=== PATIENT | female | born 1990 | race Caucasian/White ===

== ENCOUNTER 2017-05-07 15:29 | Emergency (ER) | payer OTHER ==
[~2017-05-07] VITALS: Ht 147.3 cm; Wt 83.9 kg
[~2017-05-07 15:29] MED LIST: ABILIFY10 MG PO; ANAPROX DS550 MG PO; AUGMENTIN 875 M1 TAB PO; BACTRIM DS 8001 TA1 PO; BIRTH CONTROL; CILOXAN 5 ML5 M1 OP; CIPRODEX 0.3%-7.5 ML OT; CLARITIN10 MG PO; DESYREL100 MG; ELAVIL10 MG PO; MOTRIN800 MG PO; NEXIUM40 MG PO; OMNICEF300 MG PO; PROVENTIL0.09 MG/AC IH; REGLAN10 MG PO; VALIUM5 MG PO; VICO75300 PO; ZANTAC150 MG PO; ZOFRAN4 MG
[2017-05-07] MEDS ORDERED: OMEPRAZOLE40 MG PO (15:46)
[2017-05-07] MEDS ORDERED: ONDANSETRON HYDR4 M1 PO (15:47)
[2017-05-07] MEDS ORDERED: ABILIFY30 MG PO (15:47)
[2017-05-07] MEDS ORDERED: CLARITIN10 MG PO (15:48)
[2017-05-07] MEDS ORDERED: TRILEPTAL300 MG PO (15:48)
[2017-05-07] MEDS ORDERED: LAMICTAL100 MG PO (15:49)
[2017-05-07] MEDS ORDERED: LESSINA-28 TAB1 EACH PO (15:49)
== END 2017-05-07 17:03 | disposition home or self-care (01) ==
LOC: ED 15:29
DX: R51 Headache (principal); Z79.899 Other long term (current) drug therapy; Z88.0 Allergy status to penicillin; Z88.5 Allergy status to narcotic agent; Z88.8 Allergy status to other drugs, medicaments and biological substances

== ENCOUNTER 2017-05-17 15:42 | Emergency (ER) | payer OTHER ==
[~2017-05-17] VITALS: Ht 147.3 cm; Wt 83.5 kg
[~2017-05-17 15:42] MED LIST changes: +ABILIFY30 MG PO; +LAMICTAL100 MG PO; +LESSINA-28 TAB1 EACH PO; +OMEPRAZOLE40 MG PO; +ONDANSETRON HYDR4 M1 PO; +TRILEPTAL300 MG PO
[2017-05-17] MEDS ORDERED: IMITREX50 MG PO (15:54)
[2017-05-17] MEDS ORDERED: Carafate1 GM PO (15:54)
[2017-05-17] MEDS ORDERED: MULTIVITAMINS1 EAC5 PO (15:55)
[2017-05-17] MEDS ORDERED: TRAZODONE50 MG PO (15:55)
[2017-05-17] MEDS ORDERED: DIPHENHYDRAMINE 25 MG PO (15:55)
[2017-05-17] MEDS ORDERED: ZOFRAN4 MG PO (15:56)
[2017-05-17] MEDS ORDERED: MOTRIN IB200 M1 PO (15:56)
[2017-05-17] MEDS ORDERED: OMEPRAZOLE D/R20 MG PO (15:56)
[2017-05-17] MEDS ORDERED: ABILIFY30 MG PO (15:58)
[2017-05-17] MEDS ORDERED: BISMATROL262 MG PO (15:58)
[2017-05-17] MEDS ORDERED: TRILEPTAL600 MG PO (15:59)
[2017-05-17] MEDS ORDERED: TRILEPTAL300 MG PO (15:59)
[2017-05-17] MEDS ORDERED: RANITIDINE HCL150 M1 PO (16:00)
[2017-05-17] MEDS ORDERED: LORATADINE10 M3 PO (16:00)
[2017-05-17] MEDS ORDERED: LAMICTAL100 MG PO (16:00)
[2017-05-17] MEDS ORDERED: [UNRECOGNIZED DRUG - OTHER] PO (16:01)
[2017-05-17 16:18] LABS: BILIRUBIN NEGATIVE (NEGATIVE); BLOOD NEGATIVE (NEGATIVE); CLARITY SL CLOUDY (CLEAR); COLOR YELLOW (YELLOW); GLUCOSE NEGATIVE (NEGATIVE); KETONE TRACE (NEGATIVE); LEUKO ESTERASE NEGATIVE (NEGATIVE); NITRITE NEGATIVE (NEGATIVE); SPECIFIC GRAVITY 1.015 (1.005-1.030); UROBILINOGEN 0.2 E.U./dl (0.2-1.0)
[2017-05-17 16:23] LABS: BACTERIA 2+; EPITHELIAL CELLS TNTC
[2017-05-17 16:31] LABS: BASO % 0.6 % (0.0-1.0); EOS % 0.5 % (1.0-4.0); HEMATOCRIT 43.3 % (37.0-47.0); HEMOGLOBIN 13.5 g/dl (12.0-16.0); LYMPH # 1.9 10*3/uL (1.3-4.4); LYMPH % 29.7 % (27.0-41.0); MEAN CELL VOLUME 85.6 fl (81.0-99.0); MEAN CORPUSCULAR HGB 26.7 pg (27.0-31.0); MEAN CORPUSCULAR HGB CONC 31.2 g/dl (33.0-37.0); MEAN PLATELET VOLUME 9.7 fl (9.6-12.3); MONO # 0.6 10*3/uL (0.1-1.0); NEUT # 3.8 10*3/uL (2.3-7.9); NEUT % 59.9 % (47.0-73.0); PLATELET COUNT AUTOMATED 279 10*3/uL (130-400); RED BLOOD COUNT 5.06 10*6/uL (4.10-5.10); RED CELL DISTRI WIDTH 12.2 % (0-14.5); WHITE BLOOD COUNT 6.3 10*3/uL (4.8-10.8)
[2017-05-17 16:32] LABS: URINE AMPHETAMINES < 1000 (1000ng/ml); URINE BARBITURATES < 200 (200ng/ml); URINE BENZODIAZEPINES < 200 (200ng/ml); URINE CANNABINOIDS (THC) < 50 (50ng/ml); URINE COCAINE < 300 (300ng/ml); URINE METHADONE < 300 (300ng/ml); URINE OPIATES < 300 (300ng/ml); URINE PHENCYCLIDINE < 25 (25ng/ml)
[2017-05-17 16:45] LABS: ALBUMIN 3.8 gm/dl (3.1-4.5); ALKALINE PHOSPHATASE 134 U/L (45-117); BUN 13 mg/dl (7-24); CHLORIDE 104 mmol/L (98-107); POTASSIUM 3.9 mmol/L (3.5-5.1); SGOT/AST 30 IU/L (3-35); SGPT/ALT 40 U/L (12-78); SODIUM 138 mmol/L (136-145); TOTAL PROTEIN 7.7 gm/dL (6.4-8.2)
[2017-05-17 16:47] LABS: ETHYL ALCOHOL < 3.0 mg/dl (<3)
[2017-05-17 16:48] LABS: ACETAMINOPHEN (TYLENOL) < 2.0 ug/ml (10-30); B-hCG (QUALITATIVE) NEGATIVE (NEGATIVE)
== END 2017-05-18 07:58 | disposition short-term general hospital (02) ==
LOC: ED 15:42
PROVIDERS: Physician Assistant
DX: F32.9 Major depressive disorder, single episode, unspecified (principal); R45.851 Suicidal ideations; F19.20 Other psychoactive substance dependence, uncomplicated; Z98.890 Other specified postprocedural states; Z79.899 Other long term (current) drug therapy; Z88.5 Allergy status to narcotic agent; Z88.0 Allergy status to penicillin

== ENCOUNTER → 2018-03-22 | Outpatient (CLI) | payer OTHER ==
[~2018-03-22] MED LIST changes: +BISMATROL262 MG PO; +Carafate1 GM PO; +DIPHENHYDRAMINE 25 MG PO; +IMITREX50 MG PO; +LORATADINE10 M3 PO; +MOTRIN IB200 M1 PO; +MULTIVITAMINS1 EAC5 PO; +OMEPRAZOLE D/R20 MG PO; +RANITIDINE HCL150 M1 PO; +TRAZODONE50 MG PO; +TRILEPTAL600 MG PO; +ZOFRAN4 MG PO; +[UNRECOGNIZED DRUG - OTHER] PO
== END | disposition home or self-care (01) ==
LOC: US 03-13 09:30
DX: R10.13 Epigastric pain (principal)

== ENCOUNTER → 2018-04-01 | Outpatient (CLI) | payer OTHER | END | disposition home or self-care (01) | LOC: NM 07:00 | DX: R10.11 Right upper quadrant pain (principal); R11.2 Nausea with vomiting, unspecified; R12 Heartburn; R14.0 Abdominal distension (gaseous) ==

== ENCOUNTER → 2018-04-02 | Outpatient (CLI) | payer OTHER | END | disposition home or self-care (01) | LOC: LAB 08:26 | DX: R19.7 Diarrhea, unspecified (principal) ==

== ENCOUNTER 2018-05-27 17:42 | Emergency (ER) | payer OTHER ==
[~2018-05-27] VITALS: Ht 147.3 cm; Wt 85.3 kg
== END 2018-05-27 19:37 | disposition home or self-care (01) ==
LOC: ED 17:42
DX: S82.141D Displaced bicondylar fracture of right tibia, subsequent encounter for closed fracture with routine healing (principal); Z79.899 Other long term (current) drug therapy; Z88.0 Allergy status to penicillin; Z88.5 Allergy status to narcotic agent; Z88.8 Allergy status to other drugs, medicaments and biological substances; V19.88XD Pedal cyclist (driver) (passenger) injured in other specified transport accidents, subsequent encounter

== ENCOUNTER → 2018-06-05 | Outpatient (CLI) | payer OTHER | END | disposition home or self-care (01) | LOC: CT 15:50 | DX: S82.141A Displaced bicondylar fracture of right tibia, initial encounter for closed fracture (principal); M25.461 Effusion, right knee; X58.XXXA Exposure to other specified factors, initial encounter; Y93.89 Activity, other specified; Y92.89 Other specified places as the place of occurrence of the external cause; Y99.8 Other external cause status ==

== ENCOUNTER 2018-07-03 16:02 | Emergency (ER) | payer OTHER ==
[~2018-07-03] VITALS: Ht 147.3 cm; Wt 88.0 kg
== END 2018-07-03 17:50 | disposition home or self-care (01) ==
LOC: ED 16:02
DX: R60.0 Localized edema (principal); Z98.890 Other specified postprocedural states; Z88.0 Allergy status to penicillin; Z88.8 Allergy status to other drugs, medicaments and biological substances; Z79.899 Other long term (current) drug therapy

== ENCOUNTER 2018-10-14 10:11 | Emergency (ER) | payer OTHER ==
[~2018-10-14] VITALS: Ht 147.3 cm; Wt 81.6 kg
[2018-10-14 10:47] LABS: BILIRUBIN NEGATIVE (NEGATIVE); BLOOD NEGATIVE (NEGATIVE); CLARITY CLOUDY (CLEAR); COLOR YELLOW (YELLOW); GLUCOSE NEGATIVE (NEGATIVE); KETONE NEGATIVE (NEGATIVE); LEUKO ESTERASE 1+ (NEGATIVE); NITRITE NEGATIVE (NEGATIVE); UROBILINOGEN 0.2 E.U./dl (0.2-1.0)
[2018-10-14 10:59] LABS: BACTERIA 4+; EPITHELIAL CELLS TNTC; WBC 31-40 wbc/hpf (0-5)
[2018-10-14] MEDS ORDERED: MACROBID100 M1 PO (11:07)
== END 2018-10-14 11:07 | disposition home or self-care (01) ==
LOC: ED 10:11
PROVIDERS: Nurse Practitioner Family
DX: R30.0 Dysuria (principal); R39.11 Hesitancy of micturition; R10.30 Lower abdominal pain, unspecified; R35.0 Frequency of micturition; K21.9 Gastro-esophageal reflux disease without esophagitis; Z88.0 Allergy status to penicillin; Z88.8 Allergy status to other drugs, medicaments and biological substances; Z79.899 Other long term (current) drug therapy

== ENCOUNTER → 2018-10-17 | Outpatient (CLI) | payer OTHER ==
[~2018-10-17] MED LIST changes: +MACROBID100 M1 PO
== END | disposition home or self-care (01) ==
LOC: LAB 11:29
DX: Z51.81 Encounter for therapeutic drug level monitoring (principal); Z79.899 Other long term (current) drug therapy

== ENCOUNTER 2018-10-20 09:13 | Emergency (ER) | payer OTHER ==
[~2018-10-20] VITALS: Ht 147.3 cm; Wt 82.6 kg
[2018-10-20 09:40] LABS: BILIRUBIN NEGATIVE (NEGATIVE); BLOOD NEGATIVE (NEGATIVE); CLARITY CLOUDY (CLEAR); COLOR YELLOW (YELLOW); GLUCOSE NEGATIVE (NEGATIVE); KETONE NEGATIVE (NEGATIVE); LEUKO ESTERASE TRACE (NEGATIVE); NITRITE NEGATIVE (NEGATIVE); SPECIFIC GRAVITY <= 1.005 (1.005-1.030); UROBILINOGEN 0.2 E.U./dl (0.2-1.0)
[2018-10-20 09:57] LABS: BACTERIA 3+; EPITHELIAL CELLS 40-50
[2018-10-20 09:59] LABS: BASO % 0.6 % (0.0-1.0); EOS % 0.3 % (1.0-4.0); HEMOGLOBIN 13.2 g/dl (12.0-16.0); LYMPH # 1.4 10*3/uL (1.3-4.4); LYMPH % 22.1 % (27.0-41.0); MEAN CELL VOLUME 88.6 fl (81.0-99.0); MEAN CORPUSCULAR HGB 27.8 pg (27.0-31.0); MEAN CORPUSCULAR HGB CONC 31.4 g/dl (33.0-37.0); MEAN PLATELET VOLUME 9.9 fl (9.6-12.3); MONO # 0.4 10*3/uL (0.1-1.0); MONO % 6.2 % (3.0-9.0); NEUT # 4.5 10*3/uL (2.3-7.9); NEUT % 70.5 % (47.0-73.0); PLATELET COUNT AUTOMATED 257 10*3/uL (130-400); RED BLOOD COUNT 4.74 10*6/uL (4.10-5.10); RED CELL DISTRI WIDTH 12.3 % (0-14.5); WHITE BLOOD COUNT 6.3 10*3/uL (4.8-10.8)
[2018-10-20 10:09] LABS: ALBUMIN 3.3 gm/dl (3.1-4.5); ALKALINE PHOSPHATASE 161 U/L (45-117); BUN 10 mg/dl (7-24); CHLORIDE 106 mmol/L (98-107); CREATININE 0.63 mg/dL (0.55-1.02); LIPASE 67 U/L (73-393); POTASSIUM 3.9 mmol/L (3.5-5.1); SGOT/AST 12 IU/L (3-35); SGPT/ALT 26 U/L (12-78); SODIUM 140 mmol/L (136-145)
== END 2018-10-20 13:12 | disposition home or self-care (01) ==
LOC: ED 09:13
PROVIDERS: Nurse Practitioner Family
DX: N83.202 Unspecified ovarian cyst, left side (principal)

== ENCOUNTER → 2018-12-16 | Outpatient (CLI) | payer OTHER | END | disposition home or self-care (01) | LOC: US 07:28 | DX: R74.8 Abnormal levels of other serum enzymes (principal) ==

== ENCOUNTER 2019-01-01 11:43 | Emergency (ER) | payer OTHER ==
[~2019-01-01] VITALS: Ht 147.3 cm; Wt 90.7 kg
== END 2019-01-01 14:44 | disposition home or self-care (01) ==
LOC: ED 11:43
DX: R60.0 Localized edema (principal); M79.661 Pain in right lower leg; K21.9 Gastro-esophageal reflux disease without esophagitis; Z88.0 Allergy status to penicillin; Z88.8 Allergy status to other drugs, medicaments and biological substances; Z79.2 Long term (current) use of antibiotics; Z79.899 Other long term (current) drug therapy

== ENCOUNTER 2019-01-13 10:59 | Emergency (ER) | payer OTHER ==
[~2019-01-13] VITALS: Ht 147.3 cm; Wt 99.8 kg
[2019-01-13 11:38] LABS: BILIRUBIN NEGATIVE (NEGATIVE); BLOOD NEGATIVE (NEGATIVE); CLARITY CLOUDY (CLEAR); COLOR YELLOW (YELLOW); GLUCOSE NEGATIVE (NEGATIVE); KETONE NEGATIVE (NEGATIVE); LEUKO ESTERASE 2+ (NEGATIVE); NITRITE NEGATIVE (NEGATIVE); UROBILINOGEN 0.2 E.U./dl (0.2-1.0)
[2019-01-13 11:50] LABS: BASO # 0.1 10*3/uL (0.0-0.1); BASO % 0.6 % (0.0-1.0); EOS % 0.5 % (1.0-4.0); HEMATOCRIT 41.5 % (37.0-47.0); HEMOGLOBIN 12.9 g/dl (12.0-16.0); LYMPH # 1.5 10*3/uL (1.3-4.4); LYMPH % 18.6 % (27.0-41.0); MEAN CELL VOLUME 90.6 fl (81.0-99.0); MEAN CORPUSCULAR HGB 28.2 pg (27.0-31.0); MEAN CORPUSCULAR HGB CONC 31.1 g/dl (33.0-37.0); MEAN PLATELET VOLUME 10.2 fl (9.6-12.3); MONO # 0.5 10*3/uL (0.1-1.0); MONO % 6.4 % (3.0-9.0); NEUT # 5.9 10*3/uL (2.3-7.9); NEUT % 73.7 % (47.0-73.0); PLATELET COUNT AUTOMATED 264 10*3/uL (130-400); RED BLOOD COUNT 4.58 10*6/uL (4.10-5.10); RED CELL DISTRI WIDTH 12.2 % (0-14.5)
[2019-01-13 11:55] LABS: BACTERIA 3+
[2019-01-13 12:06] LABS: ALBUMIN 3.1 gm/dl (3.1-4.5); ALKALINE PHOSPHATASE 194 U/L (45-117); BUN 8 mg/dl (7-24); CHLORIDE 104 mmol/L (98-107); CREATININE 0.65 mg/dL (0.55-1.02); POTASSIUM 3.6 mmol/L (3.5-5.1); SGOT/AST 20 IU/L (3-35); SGPT/ALT 28 U/L (12-78); SODIUM 139 mmol/L (136-145); TOTAL PROTEIN 6.8 gm/dL (6.4-8.2)
[2019-01-13 12:17] LABS: CARBAMAZEPINE (TEGRETOL) TOTAL 8.3 ug/ml (4-12)
== END 2019-01-13 13:09 | disposition home or self-care (01) ==
LOC: ED 10:59
PROVIDERS: Emergency Medicine
DX: R55 Syncope and collapse (principal); G43.909 Migraine, unspecified, not intractable, without status migrainosus; K21.9 Gastro-esophageal reflux disease without esophagitis; Z88.0 Allergy status to penicillin; Z88.8 Allergy status to other drugs, medicaments and biological substances; Z79.2 Long term (current) use of antibiotics; Z79.899 Other long term (current) drug therapy

== ENCOUNTER 2019-04-16 12:34 | Emergency (ER) | payer OTHER ==
[~2019-04-16] VITALS: Ht 147.3 cm; Wt 88.0 kg
[2019-04-16] MEDS ORDERED: IMIPRAMINE HCL25 MG PO (13:09)
[2019-04-16] MEDS ORDERED: TRUVADA 200 MG-1 TAB PO (13:10)
[2019-04-16 13:45] LABS: BILIRUBIN NEGATIVE (NEGATIVE); CLARITY SL CLOUDY (CLEAR); COLOR YELLOW (YELLOW); GLUCOSE NEGATIVE (NEGATIVE); KETONE 1+ (NEGATIVE); SPECIFIC GRAVITY 1.015 (1.005-1.030)
[2019-04-16 13:46] LABS: BACTERIA 4+; BLOOD NEGATIVE (NEGATIVE); EPITHELIAL CELLS 45-50; LEUKO ESTERASE NEGATIVE (NEGATIVE); NITRITE NEGATIVE (NEGATIVE); UROBILINOGEN 0.2 E.U./dl (0.2-1.0)
[2019-04-16] MEDS ORDERED: MACROBID100 M1 PO (14:05)
== END 2019-04-16 14:18 | disposition home or self-care (01) ==
LOC: ED 12:34
PROVIDERS: Nurse Practitioner Family
DX: N39.0 Urinary tract infection, site not specified (principal); N93.8 Other specified abnormal uterine and vaginal bleeding; Z32.02 Encounter for pregnancy test, result negative; Z88.0 Allergy status to penicillin; Z88.8 Allergy status to other drugs, medicaments and biological substances; Z79.899 Other long term (current) drug therapy

== ENCOUNTER → 2019-04-24 | Outpatient (CLI) | payer OTHER ==
[~2019-04-24] MED LIST changes: +IMIPRAMINE HCL25 MG PO; +TRUVADA 200 MG-1 TAB PO
== END | disposition home or self-care (01) ==
LOC: RAD 09:13
DX: M54.5 Low back pain (principal)

== ENCOUNTER → 2019-07-09 | Outpatient (CLI) | payer OTHER ==
[2019-07-09 13:04] LABS: ALKALINE PHOSPHATASE 163 U/L (45-117); BUN 11 mg/dl (7-24); CHLORIDE 109 mmol/L (98-107); CREATININE 0.73 mg/dL (0.55-1.02); FREE T4 0.76 ng/dl (0.76-1.46); POTASSIUM 3.5 mmol/L (3.5-5.1); SGOT/AST 18 IU/L (3-35); SGPT/ALT 32 U/L (12-78); SODIUM 140 mmol/L (136-145); TOTAL PROTEIN 6.8 gm/dL (6.4-8.2)
== END | disposition home or self-care (01) ==
LOC: LAB 11:57
PROVIDERS: Internal Medicine
DX: F31.9 Bipolar disorder, unspecified (principal)

== ENCOUNTER → 2019-07-20 | Outpatient (CLI) | payer OTHER | END | disposition home or self-care (01) | LOC: LAB 12:59 | DX: R79.89 Other specified abnormal findings of blood chemistry (principal) ==

== ENCOUNTER 2019-08-18 17:26 | Emergency (ER) | payer OTHER ==
[~2019-08-18] VITALS: Ht 147.3 cm; Wt 81.6 kg
[2019-08-18 18:11] LABS: BASO # 0.1 10*3/uL (0.0-0.1); BASO % 0.8 % (0.0-1.0); EOS % 0.5 % (1.0-4.0); LYMPH # 1.6 10*3/uL (1.3-4.4); LYMPH % 26.9 % (27.0-41.0); MEAN CELL VOLUME 91.8 fl (81.0-99.0); MEAN CORPUSCULAR HGB 28.5 pg (27.0-31.0); MEAN PLATELET VOLUME 9.9 fl (9.6-12.3); MONO # 0.6 10*3/uL (0.1-1.0); MONO % 9.2 % (3.0-9.0); NEUT # 3.7 10*3/uL (2.3-7.9); NEUT % 62.3 % (47.0-73.0); PLATELET COUNT AUTOMATED 270 10*3/uL (130-400); RED BLOOD COUNT 4.25 10*6/uL (4.10-5.10); RED CELL DISTRI WIDTH 11.5 % (0-14.5)
[2019-08-18 18:26] LABS: ALBUMIN 3.4 gm/dl (3.1-4.5); ALKALINE PHOSPHATASE 153 U/L (45-117); BUN 11 mg/dl (7-24); CHLORIDE 112 mmol/L (98-107); CREATININE 0.77 mg/dL (0.55-1.02); SGOT/AST 23 IU/L (3-35); SGPT/ALT 37 U/L (12-78); SODIUM 142 mmol/L (136-145); TOTAL PROTEIN 6.9 gm/dL (6.4-8.2)
[2019-08-18 18:40] LABS: BACTERIA TRACE; BILIRUBIN NEGATIVE (NEGATIVE); BLOOD NEGATIVE (NEGATIVE); CLARITY CLOUDY (CLEAR); COLOR YELLOW (YELLOW); GLUCOSE NEGATIVE (NEGATIVE); KETONE NEGATIVE (NEGATIVE); LEUKO ESTERASE NEGATIVE (NEGATIVE); NITRITE NEGATIVE (NEGATIVE); RBC 0-2 rbc/hpf (0-2); SPECIFIC GRAVITY 1.015 (1.005-1.030); UROBILINOGEN 0.2 E.U./dl (0.2-1.0); WBC 0-2 wbc/hpf (0-5)
== END 2019-08-18 19:58 | disposition home or self-care (01) ==
LOC: ED 17:26
PROVIDERS: Nurse Practitioner Family
DX: R53.83 Other fatigue (principal); H53.9 Unspecified visual disturbance; T43.595A Adverse effect of other antipsychotics and neuroleptics, initial encounter; K21.9 Gastro-esophageal reflux disease without esophagitis; Z88.0 Allergy status to penicillin; Z88.8 Allergy status to other drugs, medicaments and biological substances; Z79.899 Other long term (current) drug therapy; Y92.89 Other specified places as the place of occurrence of the external cause

== ENCOUNTER → 2019-08-28 | Outpatient (CLI) | payer OTHER | END | disposition home or self-care (01) | LOC: NM 08:57 | DX: K31.84 Gastroparesis (principal) ==

== ENCOUNTER → 2019-09-05 | Outpatient (CLI) | payer OTHER ==
[2019-09-05 09:59] LABS: ALBUMIN 3.4 gm/dl (3.1-4.5); BUN 7 mg/dl (7-24); CHLORIDE 112 mmol/L (98-107); POTASSIUM 3.8 mmol/L (3.5-5.1); SGOT/AST 8 IU/L (3-35); SGPT/ALT 28 U/L (12-78); SODIUM 142 mmol/L (136-145)
[2019-09-05 10:09] LABS: ALKALINE PHOSPHATASE 136 U/L (45-117); FREE T4 0.97 ng/dl (0.76-1.46); TOTAL PROTEIN 7.2 gm/dL (6.4-8.2)
== END | disposition home or self-care (01) ==
LOC: LAB 09:23
PROVIDERS: Internal Medicine
DX: G56.03 Carpal tunnel syndrome, bilateral upper limbs (principal)

== ENCOUNTER → 2019-09-29 | Outpatient (CLI) | payer OTHER ==
[2019-09-30 08:08] LABS: RHEUMATOID ARTHRITIS FACTOR <10.0 IU/mL (0.0-13.9)
[2019-10-01 00:09] LABS: CCP ANTIBODIES IGG/IGA 7 units (0-19)
[2019-10-02 18:08] LABS: METHYLMALONIC ACID 125 nmol/L (0-378)
== END ==
LOC: LAB 10:49
PROVIDERS: Internal Medicine
DX: M79.642 Pain in left hand (principal); M79.641 Pain in right hand; E53.8 Deficiency of other specified B group vitamins

== ENCOUNTER → 2019-12-29 | Outpatient (CLI) | payer OTHER ==
[2019-12-29 09:34] LABS: ALBUMIN 3.3 gm/dl (3.1-4.5); BILIRUBIN, DIRECT < 0.1 mg/dL (0.0-0.2); SGPT/ALT 19 U/L (12-78)
[2019-12-29 09:36] LABS: ALKALINE PHOSPHATASE 99 U/L (45-117); SGOT/AST 11 IU/L (3-35)
== END | disposition home or self-care (01) ==
LOC: LAB 08:58
PROVIDERS: ATTEND Internal Medicine Gastroenterology
DX: R10.13 Epigastric pain (principal)

== ENCOUNTER → 2020-01-01 | Outpatient (CLI) | payer OTHER | END | disposition home or self-care (01) | LOC: US 12-31 07:30 | PROVIDERS: ATTEND Internal Medicine Gastroenterology | DX: R10.13 Epigastric pain (principal); R94.5 Abnormal results of liver function studies ==

== ENCOUNTER 2020-06-28 17:40 | Emergency (ER) | payer OTHER ==
[~2020-06-28] VITALS: Ht 147.3 cm; Wt 89.4 kg
[2020-06-28 18:23] LABS: BASO # 0.1 10*3/uL (0.0-0.1); EOS % 0.4 % (1.0-4.0); HEMATOCRIT 38.4 % (37.0-47.0); LYMPH # 2.1 10*3/uL (1.3-4.4); LYMPH % 30.3 % (27.0-41.0); MEAN CELL VOLUME 84.4 fl (81.0-99.0); MEAN CORPUSCULAR HGB 26.6 pg (27.0-31.0); MEAN CORPUSCULAR HGB CONC 31.5 g/dl (33.0-37.0); MEAN PLATELET VOLUME 10.1 fl (9.6-12.3); MONO # 0.6 10*3/uL (0.1-1.0); NEUT # 4.1 10*3/uL (2.3-7.9); PLATELET COUNT AUTOMATED 265 10*3/uL (130-400); RED BLOOD COUNT 4.55 10*6/uL (4.10-5.10); RED CELL DISTRI WIDTH 11.6 % (0-14.5); WHITE BLOOD COUNT 6.9 10*3/uL (4.8-10.8)
[2020-06-28 18:42] LABS: ALBUMIN 3.2 gm/dl (3.1-4.5); ALKALINE PHOSPHATASE 111 U/L (45-117); BUN 17 mg/dl (7-24); CHLORIDE 110 mmol/L (98-107); CREATININE 0.98 mg/dL (0.55-1.02); LIPASE 69 U/L (73-393); POTASSIUM 3.4 mmol/L (3.5-5.1); SGOT/AST 17 IU/L (3-35); SGPT/ALT 28 U/L (12-78); SODIUM 140 mmol/L (136-145); TOTAL PROTEIN 6.8 gm/dL (6.4-8.2)
[2020-06-28 18:43] LABS: TROPONIN I < 0.015 ng/ml (<0.045)
== END 2020-06-28 19:34 | disposition home or self-care (01) ==
LOC: ED 17:40
PROVIDERS: Physician Assistant
DX: R07.9 Chest pain, unspecified (principal); Z88.0 Allergy status to penicillin; Z88.8 Allergy status to other drugs, medicaments and biological substances; Z79.899 Other long term (current) drug therapy; Z98.890 Other specified postprocedural states

== ENCOUNTER → 2020-07-01 | Outpatient (CLI) | payer OTHER ==
[2020-07-01 09:28] LABS: BASO # 0.1 10*3/uL (0.0-0.1); EOS % 0.6 % (1.0-4.0); HEMATOCRIT 42.8 % (37.0-47.0); LYMPH # 1.7 10*3/uL (1.3-4.4); LYMPH % 35.6 % (27.0-41.0); MEAN CELL VOLUME 85.9 fl (81.0-99.0); MEAN CORPUSCULAR HGB 26.5 pg (27.0-31.0); MEAN CORPUSCULAR HGB CONC 30.8 g/dl (33.0-37.0); MEAN PLATELET VOLUME 10.1 fl (9.6-12.3); MONO # 0.4 10*3/uL (0.1-1.0); MONO % 8.1 % (3.0-9.0); NEUT # 2.6 10*3/uL (2.3-7.9); NEUT % 54.5 % (47.0-73.0); PLATELET COUNT AUTOMATED 263 10*3/uL (130-400); RED BLOOD COUNT 4.98 10*6/uL (4.10-5.10); RED CELL DISTRI WIDTH 11.8 % (0-14.5); WHITE BLOOD COUNT 4.8 10*3/uL (4.8-10.8)
[2020-07-01 09:42] LABS: ALBUMIN 3.2 gm/dl (3.1-4.5); ALKALINE PHOSPHATASE 116 U/L (45-117); BILIRUBIN, DIRECT < 0.1 mg/dL (0.0-0.2); BUN 10 mg/dl (7-24); CHLORIDE 113 mmol/L (98-107); CREATININE 0.82 mg/dL (0.55-1.02); POTASSIUM 3.8 mmol/L (3.5-5.1); SGOT/AST 19 IU/L (3-35); SGPT/ALT 25 U/L (12-78); SODIUM 143 mmol/L (136-145); TOTAL PROTEIN 7.2 gm/dL (6.4-8.2)
== END | disposition home or self-care (01) ==
LOC: LAB 09:16
PROVIDERS: ATTEND Nurse Practitioner Family
DX: Z51.81 Encounter for therapeutic drug level monitoring (principal); Z79.899 Other long term (current) drug therapy

== ENCOUNTER → 2020-12-12 | Outpatient (CLI) | payer OTHER ==
[2020-12-12 09:44] LABS: ALBUMIN 3.2 gm/dl (3.1-4.5); ALKALINE PHOSPHATASE 105 U/L (45-117); BUN 11 mg/dl (7-24); CHLORIDE 108 mmol/L (98-107); POTASSIUM 4.2 mmol/L (3.5-5.1); SGOT/AST 21 IU/L (3-35); SGPT/ALT 34 U/L (12-78); SODIUM 141 mmol/L (136-145); TOTAL PROTEIN 7.2 gm/dL (6.4-8.2)
== END | disposition home or self-care (01) ==
LOC: LAB 08:42
PROVIDERS: ATTEND Nurse Practitioner Family
DX: R10.13 Epigastric pain (principal)

== ENCOUNTER → 2021-03-03 | Outpatient (CLI) | payer OTHER | END | disposition home or self-care (01) | LOC: US 02-28 11:00 | PROVIDERS: ATTEND Nurse Practitioner Family | DX: R10.13 Epigastric pain (principal) ==

== ENCOUNTER → 2021-04-12 | Outpatient (CLI) | payer OTHER | END | disposition home or self-care (01) | LOC: NM 12:51 | PROVIDERS: ATTEND Nurse Practitioner Family | DX: R10.13 Epigastric pain (principal) ==

== ENCOUNTER → 2021-04-13 | Outpatient (CLI) | payer OTHER ==
[2021-04-13 10:39] LABS: BASO # 0.1 10*3/uL (0.0-0.1); BASO % 0.8 % (0.0-1.0); EOS % 0.7 % (1.0-4.0); HEMATOCRIT 40.3 % (37.0-47.0); LYMPH # 1.8 10*3/uL (1.3-4.4); MEAN CELL VOLUME 84.1 fl (81.0-99.0); MEAN CORPUSCULAR HGB 26.3 pg (27.0-31.0); MEAN CORPUSCULAR HGB CONC 31.3 g/dl (33.0-37.0); MEAN PLATELET VOLUME 9.6 fl (9.6-12.3); MONO # 0.5 10*3/uL (0.1-1.0); MONO % 9.1 % (3.0-9.0); NEUT # 3.5 10*3/uL (2.3-7.9); NEUT % 58.1 % (47.0-73.0); PLATELET COUNT AUTOMATED 265 10*3/uL (130-400); RED BLOOD COUNT 4.79 10*6/uL (4.10-5.10); RED CELL DISTRI WIDTH 12.7 % (0-14.5); WHITE BLOOD COUNT 5.9 10*3/uL (4.8-10.8)
== END | disposition home or self-care (01) ==
LOC: LAB 10:16
PROVIDERS: ATTEND Nurse Practitioner
DX: Z51.81 Encounter for therapeutic drug level monitoring (principal); Z79.899 Other long term (current) drug therapy

== ENCOUNTER 2021-04-29 15:01 | Emergency (ER) | payer OTHER ==
[~2021-04-29] VITALS: Ht 147.3 cm; Wt 99.8 kg
[2021-04-29] MEDS ORDERED: MOTRIN 600 MG E4 TAB PO (18:25)
== END 2021-04-29 18:27 | disposition home or self-care (01) ==
LOC: ED 15:01
DX: S39.012A Strain of muscle, fascia and tendon of lower back, initial encounter (principal); Z88.0 Allergy status to penicillin; Z88.8 Allergy status to other drugs, medicaments and biological substances; Z79.899 Other long term (current) drug therapy; X50.9XXA Other and unspecified overexertion or strenuous movements or postures, initial encounter; Y93.89 Activity, other specified; Y92.89 Other specified places as the place of occurrence of the external cause; Y99.8 Other external cause status

== ENCOUNTER → 2021-06-09 | Outpatient (CLI) | payer OTHER ==
[~2021-06-09] MED LIST changes: +MOTRIN 600 MG E4 TAB PO
[2021-06-09 12:10] LABS: FREE T4 0.82 ng/dl (0.76-1.46)
[2021-06-09 12:32] LABS: BETA-HCG, QUANT < 1.0 mIU/mL (1-3)
== END | disposition home or self-care (01) ==
LOC: LAB 10:43
PROVIDERS: ATTEND Nurse Practitioner Family
DX: N91.2 Amenorrhea, unspecified (principal)

== ENCOUNTER 2021-06-27 10:23 | Emergency (ER) | payer OTHER ==
[~2021-06-27] VITALS: Wt 99.3 kg
[2021-06-27] MEDS ORDERED: MELOXICAM15 MG PO (11:21)
[2021-06-27] MEDS ORDERED: REGLAN10 M1 PO (11:21)
[2021-06-27] MEDS ORDERED: DULERA 200 MCG8.8 GM INH (11:22)
[2021-06-27] MEDS ORDERED: PROPRANOLOL HY120 MG PO (11:23)
[2021-06-27] MEDS ORDERED: NAPROSYN500 MG PO (11:31)
[2021-06-27] MEDS ORDERED: MEDROL DOSEPAK4 MG PO (11:31)
== END 2021-06-27 11:43 | disposition home or self-care (01) ==
LOC: ED 10:23
DX: M54.16 Radiculopathy, lumbar region (principal); Z88.0 Allergy status to penicillin; Z88.8 Allergy status to other drugs, medicaments and biological substances; Z79.899 Other long term (current) drug therapy

== ENCOUNTER → 2021-09-20 | Outpatient (CLI) | payer OTHER ==
[~2021-09-20] MED LIST changes: +DULERA 200 MCG8.8 GM INH; +MEDROL DOSEPAK4 MG PO; +MELOXICAM15 MG PO; +NAPROSYN500 MG PO; +PROPRANOLOL HY120 MG PO; +REGLAN10 M1 PO
[2021-09-20 14:49] LABS: FREE T4 0.95 ng/dl (0.76-1.46)
[2021-09-20 14:55] LABS: BETA-HCG, QUANT < 1.0 mIU/mL (1-3)
[2021-09-21 08:08] LABS: LUTEINIZING HORMONE 4.7 mIU/mL (.)
[2021-09-21 09:07] LABS: FOLLICLE STIMULATING HORMONE 4.6 mIU/mL (.)
== END | disposition home or self-care (01) ==
LOC: LAB 13:37
PROVIDERS: ATTEND Nurse Practitioner Family
DX: N91.2 Amenorrhea, unspecified (principal)

== ENCOUNTER 2021-11-14 10:04 | Emergency (ER) | payer OTHER ==
[~2021-11-14] VITALS: Ht 147.3 cm; Wt 99.3 kg
[2021-11-14] MEDS ORDERED: [UNRECOGNIZED DRUG - OTHER] PO (10:33)
[2021-11-14] MEDS ORDERED: METOCLOPRAMIDE10 M1 PO (10:33)
[2021-11-14] MEDS ORDERED: DEXILANT60 M1 PO (10:35)
[2021-11-14] MEDS ORDERED: DICYCLOMINE HCL10 MG PO (10:36)
[2021-11-14 10:48] LABS: BASO # 0.1 10*3/uL (0.0-0.1); BASO % 0.9 % (0.0-1.0); EOS % 0.4 % (1.0-4.0); LYMPH # 1.2 10*3/uL (1.3-4.4); LYMPH % 21.9 % (27.0-41.0); MEAN CELL VOLUME 85.7 fl (81.0-99.0); MEAN CORPUSCULAR HGB 27.3 pg (27.0-31.0); MEAN CORPUSCULAR HGB CONC 31.8 g/dl (33.0-37.0); MEAN PLATELET VOLUME 9.6 fl (9.6-12.3); MONO # 0.7 10*3/uL (0.1-1.0); MONO % 13.2 % (3.0-9.0); NEUT # 3.4 10*3/uL (2.3-7.9); PLATELET COUNT AUTOMATED 248 10*3/uL (130-400); RED BLOOD COUNT 4.55 10*6/uL (4.10-5.10); WHITE BLOOD COUNT 5.4 10*3/uL (4.8-10.8)
[2021-11-14 11:08] LABS: ALKALINE PHOSPHATASE 184 U/L (45-117); BUN 13 mg/dl (7-24); CHLORIDE 117 mmol/L (98-107); CREATININE 0.77 mg/dL (0.55-1.02); POTASSIUM 3.7 mmol/L (3.5-5.1); SGOT/AST 19 IU/L (3-35); SGPT/ALT 35 U/L (12-78); SODIUM 144 mmol/L (136-145); TOTAL PROTEIN 6.8 gm/dL (6.4-8.2)
[2021-11-14] MEDS ORDERED: INVEGA6 MG PO (13:23)
[2021-11-14] MEDS ORDERED: TOPIRAMATE100 M2 PO (13:24)
[2021-11-14] MEDS ORDERED: PROAIR HFA8.5 GM INH (13:25)
[2021-11-14] MEDS ORDERED: AMITRIPTYLINE25 MG PO (13:25)
== END 2021-11-14 13:52 | disposition home or self-care (01) ==
LOC: ED 10:04
PROVIDERS: Student in an Organized Health Care Education/Training Program
DX: U07.1 COVID-19 (principal); Z79.899 Other long term (current) drug therapy; Z91.041 Radiographic dye allergy status; Z88.0 Allergy status to penicillin; Z88.5 Allergy status to narcotic agent

== ENCOUNTER → 2021-11-24 | Outpatient (CLI) | payer OTHER ==
[~2021-11-24] MED LIST changes: +AMITRIPTYLINE25 MG PO; +DEXILANT60 M1 PO; +DICYCLOMINE HCL10 MG PO; +INVEGA6 MG PO; +METOCLOPRAMIDE10 M1 PO; +PROAIR HFA8.5 GM INH; +TOPIRAMATE100 M2 PO; +[UNRECOGNIZED DRUG - OTHER] PO
== END | disposition home or self-care (01) ==
LOC: MRI 10-27 13:00
PROVIDERS: ATTEND Nurse Practitioner Family
DX: J34.89 Other specified disorders of nose and nasal sinuses (principal); E22.1 Hyperprolactinemia

== ENCOUNTER → 2022-01-22 | Outpatient (CLI) | payer OTHER | END | disposition home or self-care (01) | LOC: MRI 10-27 13:00 → US 11-16 08:30 | PROVIDERS: ATTEND Nurse Practitioner Family | DX: N91.2 Amenorrhea, unspecified (principal) ==

== ENCOUNTER → 2022-02-01 | Outpatient (CLI) | payer OTHER ==
[2022-02-01 13:06] LABS: BASO # 0.1 10*3/uL (0.0-0.1); EOS % 0.5 % (1.0-4.0); HEMATOCRIT 38.4 % (37.0-47.0); LYMPH # 1.7 10*3/uL (1.3-4.4); LYMPH % 28.8 % (27.0-41.0); MEAN CELL VOLUME 85.1 fl (81.0-99.0); MEAN CORPUSCULAR HGB 26.6 pg (27.0-31.0); MEAN CORPUSCULAR HGB CONC 31.3 g/dl (33.0-37.0); MEAN PLATELET VOLUME 9.7 fl (9.6-12.3); MONO # 0.5 10*3/uL (0.1-1.0); MONO % 8.2 % (3.0-9.0); NEUT # 3.7 10*3/uL (2.3-7.9); NEUT % 61.5 % (47.0-73.0); PLATELET COUNT AUTOMATED 262 10*3/uL (130-400); RED BLOOD COUNT 4.51 10*6/uL (4.10-5.10); RED CELL DISTRI WIDTH 12.6 % (0-14.5); WHITE BLOOD COUNT 5.9 10*3/uL (4.8-10.8)
[2022-02-01 13:30] LABS: ALKALINE PHOSPHATASE 133 U/L (46-116); BUN 12 mg/dl (9-23); CHLORIDE 108 mmol/L (98-107); POTASSIUM 3.6 mmol/L (3.4-5.1); SGPT/ALT 16 U/L (10-49); SODIUM 140 mmol/L (136-145); THYROID STIM HORMONE (HS) 1.583 uIU/ml (0.550-4.780); TOTAL PROTEIN 6.4 gm/dL (6.0-8.0)
== END | disposition home or self-care (01) ==
LOC: LAB 11:59
PROVIDERS: ATTEND Internal Medicine
DX: R06.02 Shortness of breath (principal)

== ENCOUNTER → 2022-02-22 | Outpatient (CLI) | payer OTHER | END | disposition home or self-care (01) | LOC: RAD 13:20 | PROVIDERS: ATTEND Internal Medicine | DX: M25.761 Osteophyte, right knee (principal); M25.861 Other specified joint disorders, right knee ==

== ENCOUNTER → 2022-04-13 | Outpatient (CLI) | payer OTHER ==
[2022-04-13 11:59] LABS: BASO # 0.1 10*3/uL (0.0-0.1); BASO % 0.9 % (0.0-1.0); EOS # 0.1 10*3/uL (0.0-0.4); EOS % 0.6 % (1.0-4.0); HEMATOCRIT 39.6 % (37.0-47.0); LYMPH # 2.1 10*3/uL (1.3-4.4); LYMPH % 26.6 % (27.0-41.0); MEAN CELL VOLUME 85.7 fl (81.0-99.0); MEAN CORPUSCULAR HGB 26.4 pg (27.0-31.0); MEAN CORPUSCULAR HGB CONC 30.8 g/dl (33.0-37.0); MEAN PLATELET VOLUME 9.7 fl (9.6-12.3); MONO # 0.9 10*3/uL (0.1-1.0); MONO % 11.4 % (3.0-9.0); NEUT # 4.7 10*3/uL (2.3-7.9); PLATELET COUNT AUTOMATED 266 10*3/uL (130-400); RED BLOOD COUNT 4.62 10*6/uL (4.10-5.10); RED CELL DISTRI WIDTH 12.8 % (0-14.5); WHITE BLOOD COUNT 7.8 10*3/uL (4.8-10.8)
== END | disposition home or self-care (01) ==
LOC: LAB 11:21
PROVIDERS: ATTEND Ophthalmology Pediatric Ophthalmology and Strabismus Specialist
DX: H46.8 Other optic neuritis (principal)

== ENCOUNTER → 2022-04-18 | Outpatient (CLI) | payer OTHER | END | disposition home or self-care (01) | LOC: MRI 12:30 | PROVIDERS: ATTEND Ophthalmology Pediatric Ophthalmology and Strabismus Specialist | DX: H46.8 Other optic neuritis (principal); J32.0 Chronic maxillary sinusitis ==

== ENCOUNTER 2022-04-20 16:05 | Emergency (ER) | payer OTHER ==
[~2022-04-20] VITALS: Wt 103.9 kg
[2022-04-20] MEDS ORDERED: CILOXAN 5 ML5 M1 OP (16:41)
== END 2022-04-20 17:04 | disposition home or self-care (01) ==
LOC: ED 16:05
DX: H10.9 Unspecified conjunctivitis (principal); F41.9 Anxiety disorder, unspecified; F32.A Depression, unspecified; K21.9 Gastro-esophageal reflux disease without esophagitis; G47.00 Insomnia, unspecified; Z88.0 Allergy status to penicillin; Z91.041 Radiographic dye allergy status; Z88.8 Allergy status to other drugs, medicaments and biological substances; Z98.890 Other specified postprocedural states

== ENCOUNTER → 2022-04-30 | Outpatient (CLI) | payer OTHER | END | disposition home or self-care (01) | LOC: MRI 00:41 | PROVIDERS: ATTEND Podiatrist Foot & Ankle Surgery | DX: M25.572 Pain in left ankle and joints of left foot (principal) ==

== ENCOUNTER → 2022-05-18 | Outpatient (CLI) | payer OTHER ==
[2022-05-18 12:40] LABS: CHOLESTEROL 161 mg/dL (<200); LDL CHOLESTEROL 102 mg/dL (9-159); TRIGLYCERIDES 79 mg/dl (<150)
== END | disposition home or self-care (01) ==
LOC: LAB 10:29
PROVIDERS: ATTEND Internal Medicine
DX: E53.8 Deficiency of other specified B group vitamins (principal); R73.9 Hyperglycemia, unspecified

== ENCOUNTER 2022-08-18 14:09 | Emergency (ER) | payer OTHER ==
[~2022-08-18] VITALS: Ht 149.8 cm; Wt 108.9 kg
[2022-08-18 14:33] LABS: BASO # 0.1 10*3/uL (0.0-0.1); BASO % 1.5 % (0.0-1.0); EOS % 0.6 % (1.0-4.0); LYMPH # 2.4 10*3/uL (1.3-4.4); MEAN CELL VOLUME 84.6 fl (81.0-99.0); MEAN CORPUSCULAR HGB 26.7 pg (27.0-31.0); MEAN CORPUSCULAR HGB CONC 31.5 g/dl (33.0-37.0); MEAN PLATELET VOLUME 9.9 fl (9.6-12.3); MONO # 0.7 10*3/uL (0.1-1.0); MONO % 10.1 % (3.0-9.0); NEUT # 3.6 10*3/uL (2.3-7.9); NEUT % 52.4 % (47.0-73.0); PLATELET COUNT AUTOMATED 271 10*3/uL (130-400); RED BLOOD COUNT 4.61 10*6/uL (4.10-5.10); RED CELL DISTRI WIDTH 12.3 % (0-14.5); WHITE BLOOD COUNT 6.8 10*3/uL (4.8-10.8)
[2022-08-18 14:46] LABS: ACT PARTIAL THROMBO TIME 30.5 SECONDS (20.0-32.1)
[2022-08-18] MEDS ORDERED: MONTELUKAST SOD10 MG PO (14:51)
[2022-08-18] MEDS ORDERED: PREGABALIN25 MG PO (14:51)
[2022-08-18] MEDS ORDERED: 'CLONIDINE0.1 MG PO (14:54)
[2022-08-18 15:04] LABS: ALKALINE PHOSPHATASE 153 U/L (46-116); BUN 9 mg/dl (9-23); CHLORIDE 108 mmol/L (98-107); LIPASE 33 U/L (12-53); POTASSIUM 3.9 mmol/L (3.4-5.1); SGPT/ALT 22 U/L (10-49); TOTAL PROTEIN 6.6 gm/dL (6.0-8.0)
[2022-08-18 15:54] LABS: BILIRUBIN Negative (Negative); BLOOD Negative (Negative); CLARITY Clear (Clear); COLOR Yellow (Yellow); GLUCOSE Negative (Negative); KETONE Negative (Negative); LEUKO ESTERASE Trace (Negative); NITRITE Negative (Negative)
[2022-08-18 16:08] LABS: BACTERIA 2+
== END 2022-08-18 15:56 | disposition home or self-care (01) ==
LOC: ED 14:09
PROVIDERS: Internal Medicine
DX: F41.9 Anxiety disorder, unspecified (principal); F32.A Depression, unspecified; K21.9 Gastro-esophageal reflux disease without esophagitis; Z91.041 Radiographic dye allergy status; Z88.0 Allergy status to penicillin; Z88.8 Allergy status to other drugs, medicaments and biological substances; Z98.890 Other specified postprocedural states; Z79.899 Other long term (current) drug therapy

== ENCOUNTER → 2022-08-28 | Outpatient (CLI) | payer OTHER ==
[~2022-08-28] MED LIST changes: +'CLONIDINE0.1 MG PO; +MONTELUKAST SOD10 MG PO; +PREGABALIN25 MG PO
== END | disposition home or self-care (01) ==
LOC: LAB 08:12
PROVIDERS: ATTEND Nurse Practitioner Family
DX: E22.1 Hyperprolactinemia (principal)

== ENCOUNTER → 2023-01-08 | Outpatient (CLI) | payer OTHER ==
[2023-01-08 10:27] LABS: BASO # 0.1 10*3/uL (0.0-0.1); BASO % 1.3 % (0.0-1.0); EOS # 0.1 10*3/uL (0.0-0.4); EOS % 1.1 % (1.0-4.0); HEMATOCRIT 43.5 % (37.0-47.0); LYMPH # 1.9 10*3/uL (1.3-4.4); LYMPH % 31.3 % (27.0-41.0); MEAN CELL VOLUME 85.1 fl (81.0-99.0); MEAN CORPUSCULAR HGB CONC 30.6 g/dl (33.0-37.0); MEAN PLATELET VOLUME 10.2 fl (9.6-12.3); MONO # 0.5 10*3/uL (0.1-1.0); MONO % 7.8 % (3.0-9.0); NEUT # 3.6 10*3/uL (2.3-7.9); PLATELET COUNT AUTOMATED 302 10*3/uL (130-400); RED BLOOD COUNT 5.11 10*6/uL (4.10-5.10); RED CELL DISTRI WIDTH 12.5 % (0-14.5); WHITE BLOOD COUNT 6.2 10*3/uL (4.8-10.8)
[2023-01-08 10:54] LABS: ALKALINE PHOSPHATASE 179 U/L (46-116); BUN 11 mg/dl (9-23); CHLORIDE 110 mmol/L (98-107); CHOLESTEROL 184 mg/dL (<200); LDL CHOLESTEROL 124 mg/dL (9-159); POTASSIUM 3.9 mmol/L (3.4-5.1); SGPT/ALT 26 U/L (5-49); TRIGLYCERIDES 71 mg/dl (<150)
== END | disposition home or self-care (01) ==
LOC: LAB 09:35
PROVIDERS: ATTEND Nurse Practitioner
DX: Z51.81 Encounter for therapeutic drug level monitoring (principal); F31.89 Other bipolar disorder

== ENCOUNTER 2023-04-09 21:20 | Emergency (ER) | payer OTHER ==
[~2023-04-09] VITALS: Ht 152.4 cm; Wt 86.2 kg
[2023-04-09] MEDS ORDERED: SODIUM CHLORIDE 0.9% 1,000 ML IV ONE (21:25)
[2023-04-09] MEDS ORDERED: Metoclopramide Hydrochloride 10 MG/2 ML AMP IV ONE (21:25)
[2023-04-09] MEDS ORDERED: Ketorolac Tromethamine 30 MG/ML VIAL IV ONE (21:25)
[2023-04-09] MEDS ORDERED: ACETAMINOPHEN 325 MG TAB PO ONE (21:25)
[2023-04-09] MEDS ORDERED: diphenhydrAMINE hydrochloride 50 MG/ML VIAL IV ONE (21:25)
[2023-04-09] MEDS ORDERED: REGLAN10 M1 PO (22:39)
== END 2023-04-09 22:51 | disposition home or self-care (01) ==
LOC: ED 21:20
DX: R51.9 Headache, unspecified (principal); F32.A Depression, unspecified; F41.9 Anxiety disorder, unspecified; K21.9 Gastro-esophageal reflux disease without esophagitis; Z88.0 Allergy status to penicillin; Z91.041 Radiographic dye allergy status; Z88.8 Allergy status to other drugs, medicaments and biological substances; Z98.890 Other specified postprocedural states

== ENCOUNTER → 2023-04-20 | Outpatient (CLI) | payer OTHER ==
[2023-04-20 09:17] LABS: ALKALINE PHOSPHATASE 144 U/L (46-116); BUN 13 mg/dl (9-23); CHLORIDE 107 mmol/L (98-107); POTASSIUM 4.2 mmol/L (3.4-5.1); SGPT/ALT 23 U/L (5-49); TOTAL PROTEIN 7.6 gm/dL (6.0-8.0)
== END | disposition home or self-care (01) ==
LOC: LAB 08:19
PROVIDERS: ATTEND Internal Medicine
DX: Z11.59 Encounter for screening for other viral diseases (principal); M54.2 Cervicalgia; R10.13 Epigastric pain; F31.9 Bipolar disorder, unspecified; M47.812 Spondylosis without myelopathy or radiculopathy, cervical region; M48.02 Spinal stenosis, cervical region

== ENCOUNTER → 2023-05-20 | Outpatient (CLI) | payer OTHER | END | disposition home or self-care (01) | LOC: US 01:37 | PROVIDERS: ATTEND Internal Medicine | DX: K76.0 Fatty (change of) liver, not elsewhere classified (principal); R74.8 Abnormal levels of other serum enzymes ==

== ENCOUNTER → 2023-05-30 | Outpatient (CLI) | payer OTHER | END | disposition home or self-care (01) | LOC: LAB 11:51 | PROVIDERS: ATTEND Nurse Practitioner | DX: Z51.81 Encounter for therapeutic drug level monitoring (principal); E31.9 Polyglandular dysfunction, unspecified ==

== ENCOUNTER 2023-07-20 12:35 | Emergency (ER) | payer OTHER ==
[~2023-07-20] VITALS: Ht 147.3 cm; Wt 113.4 kg
[2023-07-20] MEDS ORDERED: MG-AL HYDROXIDE/SIMETICONE 30 ML UDC PO STA (12:56)
[2023-07-20] MEDS ORDERED: Lidocaine Hydrochloride 15 ML UDC PO STA (12:56)
[2023-07-20] MEDS ORDERED: Dicyclomine Hydrochloride 20 MG/10 ML OSYR PO STA (12:56)
[2023-07-20] MEDS ORDERED: SODIUM CHLORIDE 0.9% 1,000 ML IV ONE (13:00)
[2023-07-20 13:06] LABS: BASO # 0.1 10*3/uL (0.0-0.1); BASO % 0.8 % (0.0-1.0); EOS % 0.3 % (1.0-4.0); HEMATOCRIT 43.2 % (37.0-47.0); LYMPH # 1.4 10*3/uL (1.3-4.4); LYMPH % 19.2 % (27.0-41.0); MEAN CELL VOLUME 85.5 fl (81.0-99.0); MEAN CORPUSCULAR HGB 26.1 pg (27.0-31.0); MEAN CORPUSCULAR HGB CONC 30.6 g/dl (33.0-37.0); MONO # 0.6 10*3/uL (0.1-1.0); MONO % 7.7 % (3.0-9.0); NEUT # 5.4 10*3/uL (2.3-7.9); NEUT % 71.7 % (47.0-73.0); PLATELET COUNT AUTOMATED 284 10*3/uL (130-400); RED BLOOD COUNT 5.05 10*6/uL (4.10-5.10); WHITE BLOOD COUNT 7.5 10*3/uL (4.8-10.8)
[2023-07-20 13:23] LABS: ALKALINE PHOSPHATASE 187 U/L (46-116); BUN 9 mg/dl (9-23); CHLORIDE 108 mmol/L (98-107); LIPASE 28 U/L (12-53); POTASSIUM 3.8 mmol/L (3.4-5.1); SGPT/ALT 20 U/L (5-49); TOTAL PROTEIN 7.1 gm/dL (6.0-8.0)
[2023-07-20 13:35] LABS: BILIRUBIN Negative (Negative); BLOOD Negative (Negative); CLARITY Turbid (Clear); COLOR Dark Yellow (Yellow); GLUCOSE Negative (Negative); KETONE 2+ (Negative); LEUKO ESTERASE Negative (Negative); NITRITE Negative (Negative); SPECIFIC GRAVITY 1.015 (1.001-1.030)
[2023-07-20 13:52] LABS: BACTERIA 2+; WBC 0-2 wbc/hpf (0-5)
== END 2023-07-20 15:30 | disposition home or self-care (01) ==
LOC: ED 12:35
PROVIDERS: Physician Assistant Medical
DX: K29.70 Gastritis, unspecified, without bleeding (principal); K21.9 Gastro-esophageal reflux disease without esophagitis; R11.2 Nausea with vomiting, unspecified; F41.9 Anxiety disorder, unspecified; F32.A Depression, unspecified; Z88.0 Allergy status to penicillin; Z91.041 Radiographic dye allergy status; Z88.8 Allergy status to other drugs, medicaments and biological substances; Z98.890 Other specified postprocedural states

== ENCOUNTER 2023-10-09 20:32 | Emergency (ER) | payer OTHER ==
[~2023-10-09] VITALS: Ht 147.3 cm; Wt 106.6 kg
[2023-10-09 21:17] LABS: BASO # 0.1 10*3/uL (0.0-0.1); EOS % 0.4 % (1.0-4.0); HEMATOCRIT 37.6 % (37.0-47.0); LYMPH # 1.8 10*3/uL (1.3-4.4); LYMPH % 22.8 % (27.0-41.0); MEAN CELL VOLUME 86.6 fl (81.0-99.0); MEAN CORPUSCULAR HGB CONC 30.1 g/dl (33.0-37.0); MONO # 0.7 10*3/uL (0.1-1.0); MONO % 8.4 % (3.0-9.0); NEUT # 5.4 10*3/uL (2.3-7.9); NEUT % 67.2 % (47.0-73.0); PLATELET COUNT AUTOMATED 263 10*3/uL (130-400); RED BLOOD COUNT 4.34 10*6/uL (4.10-5.10); RED CELL DISTRI WIDTH 12.9 % (0-14.5); WHITE BLOOD COUNT 8.1 10*3/uL (4.8-10.8)
[2023-10-09 21:39] LABS: ALKALINE PHOSPHATASE 121 U/L (46-116); BUN 10 mg/dl (9-23); CHLORIDE 107 mmol/L (98-107); LIPASE 27 U/L (12-53); POTASSIUM 3.4 mmol/L (3.4-5.1); SGPT/ALT 28 U/L (5-49); TOTAL PROTEIN 6.6 gm/dL (6.0-8.0)
[2023-10-09] MEDS ORDERED: Ketorolac Tromethamine 60 MG/2 ML VIAL IM ONE (22:30)
[2023-10-09] MEDS ORDERED: MIRALAX POWDER17 G1 PO (22:30)
== END 2023-10-09 23:32 | disposition home or self-care (01) ==
LOC: ED 20:32
PROVIDERS: Internal Medicine
DX: K59.00 Constipation, unspecified (principal); R14.1 Gas pain; Z91.041 Radiographic dye allergy status; Z88.0 Allergy status to penicillin; Z88.8 Allergy status to other drugs, medicaments and biological substances; Z79.899 Other long term (current) drug therapy; Z98.890 Other specified postprocedural states

== ENCOUNTER 2023-10-25 20:57 | Emergency (ER) | payer OTHER ==
[~2023-10-25] VITALS: Ht 147.3 cm; Wt 110.7 kg
[~2023-10-25 20:57] MED LIST changes: +MIRALAX POWDER17 G1 PO
[2023-10-25] MEDS ORDERED: FUROSEMIDE 40 MG/4 ML VIAL IV ONE (22:15)
[2023-10-25 22:25] LABS: BASO # 0.1 10*3/uL (0.0-0.1); BASO % 0.8 % (0.0-1.0); EOS % 0.2 % (1.0-4.0); HEMATOCRIT 39.5 % (37.0-47.0); LYMPH # 1.8 10*3/uL (1.3-4.4); LYMPH % 19.1 % (27.0-41.0); MEAN CELL VOLUME 84.8 fl (81.0-99.0); MEAN CORPUSCULAR HGB CONC 30.6 g/dl (33.0-37.0); MEAN PLATELET VOLUME 9.8 fl (9.6-12.3); MONO # 0.9 10*3/uL (0.1-1.0); MONO % 9.7 % (3.0-9.0); NEUT # 6.5 10*3/uL (2.3-7.9); PLATELET COUNT AUTOMATED 283 10*3/uL (130-400); RED BLOOD COUNT 4.66 10*6/uL (4.10-5.10); RED CELL DISTRI WIDTH 12.8 % (0-14.5); WHITE BLOOD COUNT 9.2 10*3/uL (4.8-10.8)
[2023-10-25 22:43] LABS: BUN 12 mg/dl (9-23); CHLORIDE 106 mmol/L (98-107); POTASSIUM 3.4 mmol/L (3.4-5.1)
[2023-10-25] MEDS ORDERED: FUROSEMIDE 40 MG/4 ML VIAL IM ONE (23:20)
== END 2023-10-25 23:25 | disposition home or self-care (01) ==
LOC: ED 20:57
PROVIDERS: Internal Medicine
DX: Z91.199 Patient's noncompliance with other medical treatment and regimen due to unspecified reason (principal); R60.0 Localized edema; F41.9 Anxiety disorder, unspecified; F32.A Depression, unspecified; K21.9 Gastro-esophageal reflux disease without esophagitis; Z91.041 Radiographic dye allergy status; Z88.0 Allergy status to penicillin; Z88.8 Allergy status to other drugs, medicaments and biological substances; Z98.890 Other specified postprocedural states

== ENCOUNTER 2023-12-24 17:31 | Emergency (ER) | payer OTHER ==
[~2023-12-24] VITALS: Ht 147.3 cm; Wt 104.3 kg
[2023-12-24] MEDS ORDERED: ATIVAN0.5 MG PO (18:02)
[2023-12-24] MEDS ORDERED: Acetaminophen/Hydrocodone 5 MG/325 MG TABLET PO ONE (18:20)
[2023-12-24] MEDS ORDERED: NYSTATIN15 GM T (19:54)
[2023-12-24] MEDS ORDERED: NYSTATIN 15 GM BOT T ONE (19:55)
== END 2023-12-24 20:15 | disposition home or self-care (01) ==
LOC: ED 17:31
DX: S80.01XD Contusion of right knee, subsequent encounter (principal); B37.49 Other urogenital candidiasis; F41.9 Anxiety disorder, unspecified; F32.A Depression, unspecified; Z91.041 Radiographic dye allergy status; Z88.0 Allergy status to penicillin; Z88.8 Allergy status to other drugs, medicaments and biological substances; Z98.890 Other specified postprocedural states; W18.39XD Other fall on same level, subsequent encounter

== ENCOUNTER → 2024-02-10 | Outpatient (CLI) | payer OTHER ==
[~2024-02-10] MED LIST changes: +ATIVAN0.5 MG PO; +NYSTATIN15 GM T
[2024-02-10 08:43] LABS: BASO # 0.1 10*3/uL (0.0-0.1); EOS # 0.1 10*3/uL (0.0-0.4); EOS % 0.9 % (1.0-4.0); MEAN CELL VOLUME 81.2 fl (81.0-99.0); MEAN CORPUSCULAR HGB CONC 30.7 g/dl (33.0-37.0); MEAN PLATELET VOLUME 10.3 fl (9.6-12.3); MONO # 0.5 10*3/uL (0.1-1.0); MONO % 7.4 % (3.0-9.0); NEUT # 4.4 10*3/uL (2.3-7.9); PLATELET COUNT AUTOMATED 270 10*3/uL (130-400); RED BLOOD COUNT 5.05 10*6/uL (4.10-5.10); RED CELL DISTRI WIDTH 14.2 % (0-14.5); WHITE BLOOD COUNT 6.7 10*3/uL (4.8-10.8)
[2024-02-10 09:17] LABS: ALKALINE PHOSPHATASE 144 U/L (46-116); BUN 9 mg/dl (9-23); CHLORIDE 106 mmol/L (98-107); POTASSIUM 3.9 mmol/L (3.4-5.1); SGPT/ALT 16 U/L (5-49); TOTAL PROTEIN 6.9 gm/dL (6.0-8.0)
== END | disposition home or self-care (01) ==
LOC: LAB 08:16
PROVIDERS: ATTEND Nurse Practitioner
DX: F31.81 Bipolar II disorder (principal)

== ENCOUNTER 2024-04-05 07:46 | Emergency (ER) | payer OTHER ==
[~2024-04-05] VITALS: Wt 145.6 kg
[2024-04-05] MEDS ORDERED: ACETAMINOPHEN 325 MG TAB PO ONE (08:35)
== END 2024-04-05 09:29 | disposition home or self-care (01) ==
LOC: ED 07:46
DX: B34.9 Viral infection, unspecified (principal); Z20.822 Contact with and (suspected) exposure to COVID-19; F41.9 Anxiety disorder, unspecified; F32.A Depression, unspecified; K21.9 Gastro-esophageal reflux disease without esophagitis; Z91.041 Radiographic dye allergy status; Z88.0 Allergy status to penicillin; Z88.8 Allergy status to other drugs, medicaments and biological substances; Z98.890 Other specified postprocedural states

== ENCOUNTER → 2024-04-21 | Outpatient (CLI) | payer OTHER | END | disposition home or self-care (01) | LOC: US 00:48 | PROVIDERS: ATTEND Nurse Practitioner Family | DX: N83.202 Unspecified ovarian cyst, left side (principal); N91.2 Amenorrhea, unspecified ==

== ENCOUNTER 2024-06-18 10:58 | Emergency (ER) | payer OTHER ==
[~2024-06-18] VITALS: Wt 97.5 kg
[2024-06-18] MEDS ORDERED: Dexamethasone Sodium Phospha 20 MG/5 ML VIAL IV ONE (11:40)
[2024-06-18] MEDS ORDERED: SODIUM CHLORIDE 0.9% 1,000 ML IV ONE (11:40)
[2024-06-18] MEDS ORDERED: Metoclopramide Hydrochloride 10 MG/2 ML VIAL IV ONE (11:40)
[2024-06-18] MEDS ORDERED: diphenhydrAMINE hydrochloride 50 MG/ML VIAL IV ONE (11:40)
[2024-06-18] MEDS ORDERED: Ketorolac Tromethamine 30 MG/ML VIAL IV ONE (11:40)
== END 2024-06-18 13:12 | disposition home or self-care (01) ==
LOC: ED 10:58
DX: G43.909 Migraine, unspecified, not intractable, without status migrainosus (principal); F41.9 Anxiety disorder, unspecified; F32.A Depression, unspecified; K21.9 Gastro-esophageal reflux disease without esophagitis; Z91.041 Radiographic dye allergy status; Z88.0 Allergy status to penicillin; Z88.8 Allergy status to other drugs, medicaments and biological substances; Z79.899 Other long term (current) drug therapy; Z98.890 Other specified postprocedural states

== ENCOUNTER → 2024-09-08 | Outpatient (CLI) | payer OTHER ==
[2024-09-08 13:05] LABS: BASO # 0.1 10*3/uL (0.0-0.1); BASO % 0.8 % (0.0-1.0); EOS # 0.0 10*3/uL (0.0-0.4); EOS % 0.5 % (1.0-4.0); MEAN CELL VOLUME 83.0 fl (81.0-99.0); MEAN CORPUSCULAR HGB 25.6 pg (27.0-31.0); MEAN PLATELET VOLUME 9.6 fl (9.6-12.3); MONO # 0.5 10*3/uL (0.1-1.0); MONO % 8.5 % (3.0-9.0); NEUT # 3.7 10*3/uL (2.3-7.9); NEUT % 59.7 % (47.0-73.0); NUCLEATED RED BLOOD CELL 0.0 % (0.0-0.0); NUCLEATED RED BLOOD CELL 0.0 10*3/uL (0.0-0.0); PLATELET COUNT AUTOMATED 275 10*3/uL (130-400); RED CELL DISTRI WIDTH 13.5 % (0-14.5)
[2024-09-08 13:27] LABS: BUN 11 mg/dl (9-23); LDL CHOLESTEROL 88 mg/dL (9-159); SGPT/ALT 26 U/L (5-49)
== END | disposition home or self-care (01) ==
LOC: LAB 12:39
PROVIDERS: ATTEND Internal Medicine
DX: F31.9 Bipolar disorder, unspecified (principal)